=== PATIENT | female | born 1955 | race Native Hawaiian/Other Pacific Islander ===

== ENCOUNTER → 2025-02-03 | Outpatient (CLI) | payer MEDICARE ==
--- NOTE | 2025-02-04 10:02 | CA ---
Transthoracic Echo Report Name: Haylee Barnett Age: 69 Gender: F : 1955 Exam Date: 02/03/2025 11:26 Exam Location: [facility] Ht (in): 60 Wt (lb): 176 Ordering Physician: Klaus Holloway MD Attending/Referring Phys: Amie BACON Floor Technician Candice Michelle RDCS Procedure CPT: Indications: R01.1 Undiagnosed cardiac murmurs Cardiac Hx: Technical Quality: Good Contrast 1: Total Dose (mL): Contrast 2: Total Dose (mL): MEASUREMENTS (Male / Female) Normal Values 2D ECHO LV Diastolic Diameter PLAX 5.1 cm 4.2 - 5.9 / 3.9 - 5.3 cm LV Systolic Diameter PLAX 3.6 cm IVS Diastolic Thickness 1.1 cm 0.6 - 1.0 / 0.6 - 0.9 cm LVPW Diastolic Thickness 1.0 cm 0.6 - 1.0 / 0.6 - 0.9 cm LV Relative Wall Thickness 0.4 LVOT Diameter 2.2 cm LV Diastolic Volume MOD BP 108.1 cm??? 67 - 155 / 56 - 104 cm??? LV Systolic Volume MOD BP 36.5 cm??? 22 - 58 / 19 - 49 cm??? LV Ejection Fraction MOD BP 66.2 % >= 55 % LV Cardiac Index MOD BP 2593.6 cm???/min???m??? LV Diastolic Volume MOD 4C 105.8 cm??? LV Systolic Volume MOD 4C 35.9 cm??? LV Ejection Fraction MOD 4C 66.0 % LV Cardiac Index MOD 4C 2531.7 cm???/min???m??? LV Diastolic Length 4C 7.2 cm LV Systolic Length 4C 5.6 cm LV Diastolic Volume MOD 2C 107.2 cm??? LV Systolic Volume MOD 2C 36.0 cm??? LV Ejection Fraction MOD 2C 66.4 % LV Cardiac Index MOD 2C 2579.5 cm???/min???m??? LV Diastolic Length 2C 7.4 cm LV Systolic Length 2C 5.4 cm LA Volume 51.9 cm??? 18 - 58 / 22 - 52 cm??? LA Volume Index 27.7 cm???/m??? 16 - 28 cm???/m??? DOPPLER AV Peak Velocity 203.0 cm/s AV Peak Gradient 16.5 mmHg AV Mean Velocity 131.7 cm/s AV Mean Gradient 7.9 mmHg AV Velocity Time Integral 41.4 cm LVOT Peak Velocity 118.7 cm/s LVOT Peak Gradient 5.6 mmHg LVOT Velocity Time Integral 25.3 cm LVOT Stroke Volume 95.3 cm??? LVOT Stroke Volume Index 53.9 ml/m??? LVOT Cardiac Index 3453.0 cm???/min???m??? AV Area Cont Eq vti 2.3 cm??? AV Area Cont Eq pk 2.2 cm??? MV Area PHT 2.7 cm??? Mitral E Point Velocity 62.8 cm/s Mitral A Point Velocity 74.0 cm/s Mitral E to A Ratio 0.8 MV Deceleration Time 277.9 ms PV Peak Velocity 122.9 cm/s PV Peak Gradient 6.0 mmHg FINDINGS Left Ventricle Left ventricular ejection fraction is estimated at 60 %. Mildly increased septal wall thickness. Mildly increased left ventricular diastolic volume. No obvious regional wall motion abnormalities. Right Ventricle Normal right ventricular size and function. Unable to estimate the right ventricular systolic pressure. Right Atrium Normal right atrial size. Left Atrium Normal left atrial size. Mitral Valve Structurally normal mitral valve. No mitral stenosis, regurgitation or prolapse. Aortic Valve Trileaflet aortic valve. No aortic stenosis. Trace aortic regurgitation. Tricuspid Valve Structurally normal tricuspid valve. No tricuspid stenosis. Trace tricuspid regurgitation. Pulmonic Valve Pulmonic valve not well visualized. No pulmonic stenosis. No pulmonic regurgitation. Pericardium No pericardial effusion. Echo free space anterior to the right ventricle likely represents a fat pad. Aorta Normal size aortic root and proximal ascending aorta. CONCLUSIONS Normal LV size and systolic function. Mild mitral and tricuspid regurgitation. Right-sided pressures are not well quantified. Small fat pad but no significant pericardial effusion Previewed by: Dr. Jamar Sauceda MD (Electronically Signed) Final Date: 04 Feb 2025 10:01
== END | disposition home or self-care (01) ==
LOC: RADECHMAIN 11:25
PROVIDERS: ATTEND Family Medicine
DX: I08.1 Rheumatic disorders of both mitral and tricuspid valves (principal); R01.1 Cardiac murmur, unspecified
CPT/HCPCS: 93306